=== PATIENT | male | born 1955 | race Caucasian/White ===

== ENCOUNTER 2018-06-20 05:16 | Day surgery (SDC) | payer BC ==
[2018-06-20] MEDS ORDERED: MIDAZOLAM HCL 2MG/2ML VIAL IV ONE (05:17)
[2018-06-20] MEDS ORDERED: LIDOCAINE 2% MDV (20MG/ML) 20ML VIAL IV ONE (05:17)
[2018-06-20] MEDS ORDERED: FENTANYL PF 100MCG/2ML VIAL IV ONE (05:17)
[2018-06-20] MEDS ORDERED: PROPOFOL 10 MG/ML VIAL IV ONE (05:17)
[2018-06-20] MEDS ORDERED: *PACU ONLY* KETAMINE HCL 10 MG/ML (20ML) VIAL IV ONE (05:17)
[2018-06-20] MEDS ORDERED: RINGERS SOLUTION,LACTATED 1,000 ML IV ONE ×2 (05:40→07:16)
[2018-06-20] MEDS ORDERED: BUPIVACAINE 0.25% W/EPI MPF 30ML VIAL SQ ONE (06:56)
[2018-06-20] MEDS ORDERED: BETAMETHASONE 6 MG/1 ML 5ML VIAL IM ONE (06:56)
[2018-06-20] MEDS ORDERED: HYDROCODONE/APAP 5/325MG TABLET PO ONE (07:23)
--- NOTE | 2018-06-21 09:10 | Operative Note ---
DATE OF SURGERY: 06/20/2018 PREOPERATIVE DIAGNOSIS: Adhesive capsulitis of the left shoulder. POSTOPERATIVE DIAGNOSIS: Adhesive capsulitis of the left shoulder. OPERATION: 1. Manipulation under anesthesia, left shoulder. 2. Injection of left shoulder. SURGEON: Randall Pederson D.O. REFERRING PHYSICIAN: Donavon Bryson D.O. ANESTHESIA: General. PROCEDURE: This 63-year-old male was taken to the operating room and placed in the supine position on the operating room table. A general anesthetic was administered. The left upper extremity was taken through gentle range of motion and found to be markedly restricted at about 55 degrees of abduction, external rotation to 45 degrees, forward flexion to 120 degrees. We then passively manipulated his shoulder to 120 degrees of abduction, 100 degrees of external rotation, 180 degrees of full flexion, extension to 45 degrees at full adduction, disruption of cicatrix could be identified at the time of the manipulation. The anterior aspect of the shoulder was then prepped with alcohol and a 22 gauge spinal needle was advanced into the glenohumeral joint and injected with 2 mL of Celestone Soluspan and 4 mL of 0.25% Marcaine with epinephrine. The patient taken to the recovery room in satisfactory condition. GARY
== END 2018-06-20 07:39 | disposition home or self-care (01) ==
LOC: SUR 05:16
PROVIDERS: ATTEND Orthopaedic Surgery
DX: M75.02 Adhesive capsulitis of left shoulder (principal); E78.00 Pure hypercholesterolemia, unspecified; K21.9 Gastro-esophageal reflux disease without esophagitis
CPT/HCPCS: J7120